=== PATIENT | female | born 1990 | race Caucasian/White ===

== ENCOUNTER 2020-09-01 11:01 | Outpatient (RCR) | payer BC, SELFPAY ==
--- NOTE | 2020-09-01 14:27 | PC.NURSE ---
IN 1010 OUT 1105 HISTORY: Pt. delivered at [facility] at 37 6/7 weeks. had no complications after delivery. Mother had no complications after delivery. Mother induced for high blood pressure. Infant is now 14 days old. appears to be well cared for. has been seen by [facility] as scheduled. Infant last seen by ICP at 1 week. Mother reports: Mother began pumping and bottle feeding due to difficulties/discomfort with latching. Mother will attempt infant to breast a few times per day, infant may latch for 1-2 minutes then pulls off and refuses to latch with crying and arching. Mother will give EBM of 2 oz each feeding. Mother is pumping 80-120 mls after each feeding attempt. Mother wishes: Infant to feed at breast and discontinue pumping and bottle feeding. OBSERVATION: Currently at 6-8 wets per day and 2-3 yellow seedy stools per day. weight: 6#10 Discharge weight: 6#6 Last Weight:6#12 Pre feeding weight: 3250 Post feeding weight: 3291 appears to move tongue freely past gum ridge no sign of tight frenulum noted. Mother appears to have flat nipples then do not draw out with stimulation or rolling. Mother attempts to breast in cradle, suggested mother release latch and use cross cradle. Assisted with to breast. Reviewed positioning/alignment with cross cradle, holding breast in U hold and guided asymmetrical latch on. made eager attempts to latch and was unable to draw nipple in. Offered and explained the nipple shield. Discussed nipple shield precautions and possible complications. Instructions given on application and cleaning of shield. Patient able to return demonstration on proper application of shield. Discussed the need for regular pumping until is able to effective feed and gain weight if continues to nurse with the shield. Patient verbalizes understanding. With shield in place, infant was able to latch correctly. Infant nursed eagerly, with steady draws and frequent swallowing noted. Reviewed signs of a correct latch, effective nursing and suck swallow ratio. Infant was able to maintain latch without discomfort to mother. Demonstrated how to adjust latch more deeply if infant slips to shallow latch or mother has discomfort with feeding. Nipple care reviewed. Mother was able to switch to other breast independently using shield. Discussed weaning techniques from shield. Advised to allow infant to nurse both breast per feeding and offer EBM as desires and to continue to pump. Once infant is satisfied with nursing and continues to maintain current output and no longer requires supplement mother may wean back on pumping after feedings and pump to comfort. PLAN: Mother will follow above feeding plan using the nipple shield and deep latch with effective feeding. Mother will call with further questions or concerns. Follow up phone call scheduled for 09/05/2020. I
== END 2020-10-04 09:56 | disposition home or self-care (01) ==
LOC: ANHOBOP 11:01
PROVIDERS: PCP Internal Medicine; Visit Provider Pediatrics
DX: Z39.1 Encounter for care and examination of lactating mother (principal)
CPT/HCPCS: 99202; G0463